=== PATIENT | male | born 2000 | race African-American/Black ===

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

== ENCOUNTER 2022-01-14 21:50 | Emergency (ER) | payer OTHER ==
[~2022-01-14] VITALS: Ht 175.3 cm; Wt 106.0 kg
[~2022-01-14 21:50] MED LIST changes: +ZOFRAN4 MG/TAB PO
[2022-01-14] MEDS ORDERED: CORTISPORIN OTI10 M2 AS (22:02)
[2022-01-14] MEDS ORDERED: AMOX/K CLAV875 M1 PO (22:02)
[2022-01-14 22:21] VITALS: BP 128/80
== END 2022-01-14 22:25 | disposition home or self-care (01) ==
LOC: ED 21:50
DX: H66.92 Otitis media, unspecified, left ear (principal); H60.92 Unspecified otitis externa, left ear

== ENCOUNTER 2023-02-03 18:32 | Emergency (ER) | payer OTHER ==
[~2023-02-03] VITALS: Ht 175.3 cm; Wt 104.0 kg
[~2023-02-03 18:32] MED LIST changes: +AMOX/K CLAV875 M1 PO; +CORTISPORIN OTI10 M2 AS
[2023-02-03] MEDS ORDERED: NAPROXEN500 MG PO (19:41)
[2023-02-03] MEDS ORDERED: METHOCARBAMOL500 MG PO (19:41)
[2023-02-03 20:12] VITALS: BP 156/90
== END 2023-02-03 20:23 | disposition home or self-care (01) | DRG 914 ==
LOC: ED 18:32
DX: S09.90XA Unspecified injury of head, initial encounter (principal); S39.012A Strain of muscle, fascia and tendon of lower back, initial encounter; V48.5XXA Car driver injured in noncollision transport accident in traffic accident, initial encounter